=== PATIENT | male | born 1970 | race Caucasian/White ===

== ENCOUNTER → 2023-12-25 08:18 | Outpatient (REF) | payer OTHER, SELFPAY ==
[2023-12-25 09:52] LABS: % Basophils 0.7 % (0-2); % Eosinophils 2.5 % (0-6); % Immature Granulocytes 0.4 % (0-0.5); % Lymphocytes 34.7 % (20.5-51.1); % Monocytes 7.4 % (1.7-9.3); % Neutrophils 54.3 % (42.2-75.2); Absolute Basophils 0.1 10^3/uL (0-0.2); Absolute Eosinophils 0.2 10^3/uL (0-0.7); Absolute Lymphocytes 2.4 10^3/uL (1.2-3.4); Absolute Monocytes 0.5 10^3/uL (0.1-0.6); Absolute Neutrophils 3.7 10^3/uL (1.4-6.5); Hematocrit 37.2 % (39.0-52.0); Hemoglobin 12.8 g/dL (13.0-18.0); Mean Corp Hgb Conc. 34.4 g/dL (33.0-37.0); Mean Corpuscular Volume 87.1 fL (80.0-94.0); Mean Platelet Volume 12.6 fL (7.4-10.4); Nucleated Red Blood Cells % 0 % (-); Platelet Count 186 10^3/uL (130-400); Red Blood Cell Count 4.27 10^6/uL (4.70-6.10); Red Cell Dist. Width 12.9 % (11.5-14.5); White Blood Cell Count 6.9 10^3/uL (4.8-10.8)
[2023-12-25 10:11] LABS: ALT (SGPT) 18 U/L (0-50); AST (SGOT) 23 U/L (17-59); Albumin 4.2 g/dl (3.5-5.0); Alkaline Phosphatase 44 U/L (38-126); Blood Urea Nitrogen 22 mg/dl (9-20); Carbon Dioxide 26 mmol/L (22-30); Chloride 104 mmol/L (98-107); Glucose 121 mg/dl (70-99); HDL Cholesterol 34 mg/dl; LDL Cholesterol, Calculated 96 mg/dl; Potassium 4.1 mmol/L (3.5-5.1); Sodium 138 mmol/L (135-145); Total Bilirubin 0.7 mg/dl (0.2-1.3); Total Cholesterol 158 mg/dl (50-199); Total Protein 6.8 g/dl (6.3-8.2); Triglyceride 141 mg/dl (10-149); Very Low Density Lipoprotein 28 mg/dl (0-30); eGFR > 60.00
[2023-12-25 10:29] LABS: Microalbumin/creatinine Ratio 49.6 mg/g
[2023-12-25 10:41] LABS: PSA, Total - Screen 1.56 ng/ml (0.0-4.0)
== END ==
LOC: HWLAB 08:18
PROVIDERS: ATTENDING PHYSICIAN Nurse Practitioner
DX: E11.9 Type 2 diabetes mellitus without complications (principal); E78.2 Mixed hyperlipidemia; R80.9 Proteinuria, unspecified; Z12.5 Encounter for screening for malignant neoplasm of prostate
CPT/HCPCS: 36415; 80053; 80061; 82043; 82570; 83036; 85025; G0103

== ENCOUNTER → 2024-01-19 06:20 | Day surgery (SDC) | payer OTHER, SELFPAY ==
[2024-01-19 07:26] LABS: Glucose - Point of Care 137 mg/dl (70-99)
== END ==
LOC: GI 06:20
PROVIDERS: ATTENDING PHYSICIAN Internal Medicine Gastroenterology
DX: Z12.11 Encounter for screening for malignant neoplasm of colon (principal); D12.3 Benign neoplasm of transverse colon; K63.5 Polyp of colon; K57.30 Diverticulosis of large intestine without perforation or abscess without bleeding; K64.8 Other hemorrhoids; Z85.038 Personal history of other malignant neoplasm of large intestine
CPT/HCPCS: 45380; 88305; 82962

== ENCOUNTER → 2024-02-01 13:01 | Outpatient (REF) | payer OTHER, SELFPAY | LOC: RAD 13:01 | PROVIDERS: ATTENDING PHYSICIAN Internal Medicine | DX: R31.0 Gross hematuria (principal) | CPT/HCPCS: 74178; Q9967 ==

== ENCOUNTER → 2024-03-06 18:09 | Outpatient (REF) | payer OTHER, SELFPAY | LOC: CLAB 18:09 | PROVIDERS: ATTENDING PHYSICIAN Specialist | DX: N20.0 Calculus of kidney (principal) | CPT/HCPCS: 82365 ==

== ENCOUNTER → 2024-05-14 12:18 | Outpatient (REF) | payer OTHER, SELFPAY | LOC: HWRAD 12:18 | PROVIDERS: ATTENDING PHYSICIAN Internal Medicine Endocrinology, Diabetes & Metabolism; FAMILY PHYSICIAN Internal Medicine | DX: E04.1 Nontoxic single thyroid nodule (principal) | CPT/HCPCS: 76536 ==

== ENCOUNTER → 2024-06-24 07:38 | Outpatient (REF) | payer OTHER, SELFPAY ==
[2024-06-24 09:42] LABS: Blood Urea Nitrogen 19 mg/dl (9-20); Calcium 9.6 mg/dl (8.4-10.2); Carbon Dioxide 27 mmol/L (22-30); Chloride 100 mmol/L (98-107); Glucose 128 mg/dl (70-99); Sodium 136 mmol/L (135-145); eGFR > 60.00
[2024-06-24 10:19] LABS: Glycohemoglobin (HgbA1c) 6.1 % (4.0-5.6)
== END ==
LOC: HWLAB 07:38
PROVIDERS: ATTENDING PHYSICIAN Internal Medicine
DX: E11.9 Type 2 diabetes mellitus without complications (principal)
CPT/HCPCS: 36415; 80048; 83036

== ENCOUNTER 2024-11-27 04:16 | Emergency (ER) | payer OTHER, SELFPAY ==
[2024-11-27 04:20] VITALS: BP 133/73
[2024-11-27 04:34] VITALS: BMI 34.4
[2024-11-27] MEDS: TORADOL 15 MG IV (04:45)
[2024-11-27] MEDS: NSS 1000 IV (04:46)
[2024-11-27 04:49] LABS: Urine Albumin 3+ (Neg - Trace); Urine Bilirubin Negative (Negative); Urine Character Clear (Clear); Urine Color Yellow; Urine Glucose Negative (Negative); Urine Ketone Negative (Negative); Urine Leukocyte Negative (Negative); Urine Nitrite Negative (Negative); Urine Occult Blood 4+ (Negative); Urine Specific Gravity 1.025 (<1.030); Urine Urobilinogen Negative (Neg - 1+)
[2024-11-27 04:49] LABS: % Basophils 0.5 % (0-2); % Eosinophils 1.7 % (0-6); % Immature Granulocytes 0.2 % (0-0.5); % Lymphocytes 35.3 % (20.5-51.1); % Monocytes 7.5 % (1.7-9.3); % Neutrophils 54.8 % (42.2-75.2); Absolute Basophils 0.1 10^3/uL (0-0.2); Absolute Eosinophils 0.2 10^3/uL (0-0.7); Absolute Lymphocytes 3.4 10^3/uL (1.2-3.4); Absolute Monocytes 0.7 10^3/uL (0.1-0.6); Absolute Neutrophils 5.2 10^3/uL (1.4-6.5); Hematocrit 39.7 % (39.0-52.0); Hemoglobin 13.9 g/dL (13.0-18.0); Mean Corpuscular Hgb 30.8 pg (27.0-31.0); Mean Corpuscular Volume 87.8 fL (80.0-94.0); Mean Platelet Volume 12.4 fL (7.4-10.4); Nucleated Red Blood Cells % 0 % (-); Platelet Count 189 10^3/uL (130-400); Red Blood Cell Count 4.52 10^6/uL (4.70-6.10); Red Cell Dist. Width 12.7 % (11.5-14.5); White Blood Cell Count 9.6 10^3/uL (4.8-10.8)
[2024-11-27] MEDS: DILAUDID 1 MG IV (04:57)
[2024-11-27 05:13] LABS: ALT (SGPT) 16 U/L (0-50); AST (SGOT) 21 U/L (17-59); Albumin 4.7 g/dl (3.5-5.0); Alkaline Phosphatase 37 U/L (38-126); Blood Urea Nitrogen 26 mg/dl (9-20); Calcium 9.3 mg/dl (8.4-10.2); Carbon Dioxide 24 mmol/L (22-30); Chloride 108 mmol/L (98-107); Estimated Creatinine Clearance 71 ml/min; Glucose 161 mg/dl (70-99); Lipase 746 U/L (23-300); Sodium 142 mmol/L (135-145); Total Bilirubin 0.7 mg/dl (0.2-1.3); Total Protein 7.1 g/dl (6.3-8.2); eGFR 59.36
--- NOTE | 2024-11-27 05:48 | ED.GENMED ---
History of Present Illness
General
Chief Complaint: Flank Pain
Time Seen by Provider: 11/27/24 04:25
History of Present Illness
History of Present Illness:
53-year-old male presents to the emergency department with right-sided flank pain. Pain began approximately 1 hour prior to arrival and awakened from sleep. Denies fever or chills reports no nausea or vomiting
Past History
Past History
ED Past Medical History: GERD, HTN and Hypercholesterolemia
ED Past Surgical History: Cholecystectomy, Orthopedic and Other (Hernia repair)
Social History
Tobacco: Non-smoker
Alcohol: None
Drug: None
Personal:
Living: with family
Employment: Employed
Family History
Family History: Other (Noncontributory)
Phy Exam
Physical Exam
Physical Exam:
Physical Exam
Vital signs and allergy list reviewed and agreed with.
GENERAL: Alert , in minimal apparent distress
EYE: pupils equal, EOMI, anicteric
NECK: Supple, no significant adenopathy. No masses. Trachea midline
ENT: Oropharynx is clear, mmm.
CARDIAC: Regular rate and rhythm . No M/R/G
LUNGS: Clear breath sounds bilaterally, no acute respiratory distress, no wheezes/rales/rhonchi
ABDOMEN: Soft, without focal tenderness, no r/g, right cvat. Normal BSx4q
NEUROLOGICAL: Alert and oriented, no focal neuro deficits
SKIN: Warm and dry, skin intact.
MUSCULOSKELETAL: No edema, well perfused. Moves all 4 extremities
PSYCH: Normal and appropriate interaction.
Course
Orders/Labs/Results
Orders:
Orders
11/27/24 04:25
CT Abd/pel Without Iv Or Oral Urgent
Comment:
Reason For Exam: r flank pain
0.9% Sodium Chloride 1000 ml [Nss] 1,000 ml IV BOLUS
11/27/24 04:38
Complete Blood Count/With Diff Urgent
Comprehensive Metabolic Panel Urgent
Lipase Urgent
11/27/24 04:39
Urinalysis Reflex To Culture Urgent
Date Specimen was Collected: 11/27/24
Time Specimen was Collected: 04:38
Urine Microscopic Reflex Cult Urgent
11/27/24 04:43
Ketorolac [Toradol] 15 mg .ROUTE .STK-MED ONE
Ketorolac [Toradol] 15 mg IV NOW STA
11/27/24 04:55
HYDROmorphone [Dilaudid] 1 mg IV NOW STA
11/27/24 06:11
Oxycodone/Acetaminophen [Percocet 5/325] 2 tablet .ROUTE .STK-MED ONE
11/27/24 06:14
Oxycodone/Acetaminophen [Percocet 5/325] 2 tablet PO NOW STA
Abnormal Lab Results
11/27/24 11/27/24
04:38 04:39
RBC 4.52 L 10^6/uL
(4.70-6.10)
MPV 12.4 H fL
(7.4-10.4)
Absolute Monos (auto) 0.7 H 10^3/uL
(0.1-0.6)
Chloride 108 H mmol/L
(98-107)
BUN 26 H mg/dl
(9-20)
Creatinine 1.4 H mg/dL
(0.7-1.3)
Glucose 161 H mg/dl
(70-99)
Alkaline Phosphatase 37 L U/L
(38-126)
Lipase 746 H U/L
(23-300)
Ur Occult Blood Reflex 4+ A
(Negative)
Urine RBC >100 A /HPF
(0-2)
Urine Albumin (Reflex) 3+ A
(Neg - Trace)
11/27/24 04:38
11/27/24 04:38
Vital Signs
Initial and Last Documented VS:
Initial Vital Signs
Temp Pulse Resp BP Pulse Ox
98.9 F 59 16 133/73 100
11/27/24 04:20 11/27/24 04:20 11/27/24 04:20 11/27/24 04:20 11/27/24 04:20
Last Documented Vital Signs
Temp Pulse Resp BP Pulse Ox
98.9 F 59 20 127/63 99
11/27/24 04:20 11/27/24 06:16 11/27/24 06:16 11/27/24 06:16 11/27/24 06:16
*Critical Care Note
Total Time (30-74mins, 75-104mins- exclusive of procedures): Not Applicable
Update Note
Update Note:
NAME: ODESSATOYA
DATE OF EXAM: 11/27/2024
Patient No: [id number]
Physician: ARMEN^Barbara
Date of : 1970
Past Medical History (entered by Technologist):
Reason For Exam (entered by Technologist):
Other Notes (entered by Technologist): rlq pain, h/o stones
priors
Additional Information (per [facility] Radiologist):
CT Abdomen and Pelvis (without IV contrast): Obstructing 2 mm stone within the distal right ureter
IMPRESSION:
With mild right hydroureteronephrosis.
No bowel stranding or evidence of obstruction. Normal appendix.
ED Attending Note
-
Portions of this chart may have been created with voice recognition software.� Occasional wrong word or��sound alike� substitutions may have occurred due to the inherent limitations of voice recognition software.
Discharge Plan
Departure
Patient Disposition: Home (Routine Discharge)
Date of Disposition: 11/27/24
Time of Disposition: 05:48
Patient with high blood pressure during this ER visit?: Yes
Condition: Good
Discharge Problem:
Kidney stone on right side
Instructions: Kidney Stones (DC), How to Strain Your Urine, BLOOD PRESSURE, Narcotic Pain Medication
Prescriptions:
New
ondansetron HCl 4 mg tablet
4 mg PO TID 4 Days Qty: 12 0RF
diclofenac sodium 75 mg tablet,delayed release (DR/EC)
75 mg PO BID Qty: 10 0RF
oxycodone-acetaminophen [Percocet] 5-325 mg tablet
1 tab PO Q6HPRN PRN (Reason: pain) Qty: 7 0RF
tamsulosin [Flomax] 0.4 mg capsule
0.4 mg PO DAILY Qty: 7 0RF
No Action
fenofibrate nanocrystallized 145 mg Tablet
145 mg PO HS
Excedrin Migraine 250-250-65 mg Tablet
1 tab PO PRN PRN (Reason: migraine)
naproxen sodium [Aleve] 220 mg Capsule
440 mg PO BID PRN (Reason: pain)
Referrals:
Herman Bolton MD [Active, Urology]
Bhavani Arellano DO [Family Provider, Family Practice]
Interventions
Interventions:
*Risk Screen - Suicide Last Done: 11/27/24 04:20
*General Assessment Last Done: 11/27/24 06:45
*Neglect/Abuse Screening Last Done: 11/27/24 04:20
*ED- Fall Risk Assessment Last Done: 11/27/24 04:20
*ED COVID-19 Vaccine History Last Done: 11/27/24 04:20
*Nursing Disposition Last Done: 11/27/24 06:45
TY-Ushujq-Srgbwxbgiz Assessment Last Done: 11/27/24 05:34
ED-Male Genitourinary Assessment Last Done: 11/27/24 05:34
Discharge Date and Time
Discharge Date/Time: 11/27/24 06:45
Print Language: AZERI
[2024-11-27 05:53] LABS: Urine Uric Acid Crystals Present
[2024-11-27 05:54] LABS: Urine Red Blood Cell >100 /HPF (0-2); Urine White Cell None Seen /HPF (0-5)
[2024-11-27] MEDS: PERCOCET 5/325 2 TABLET PO (06:14)
[2024-11-27 06:16] VITALS: BP 127/63
== END 2024-11-27 06:45 | disposition home or self-care (01) ==
LOC: EMR 04:16
PROVIDERS: EMERGENCY PHYSICIAN Student in an Organized Health Care Education/Training Program; FAMILY PHYSICIAN Internal Medicine
DX: N13.2 Hydronephrosis with renal and ureteral calculous obstruction (principal); I10 Essential (primary) hypertension; E78.00 Pure hypercholesterolemia, unspecified; Z90.49 Acquired absence of other specified parts of digestive tract
CPT/HCPCS: 96374; 96375; 96361; 99284; 74176; 80053; 81003; 81015; 83690; 85025

== ENCOUNTER → 2024-12-25 07:06 | Outpatient (REF) | payer OTHER, SELFPAY ==
[2024-12-25 09:42] LABS: Hematocrit 37.0 % (39.0-52.0); Hemoglobin 12.8 g/dL (13.0-18.0); Mean Corp Hgb Conc. 34.6 g/dL (33.0-37.0); Mean Corpuscular Volume 87.5 fL (80.0-94.0); Nucleated Red Blood Cells % 0 % (-); Platelet Count 153 10^3/uL (130-400); Red Cell Dist. Width 12.4 % (11.5-14.5)
[2024-12-25 10:06] LABS: ALT (SGPT) 14 U/L (0-50); AST (SGOT) 18 U/L (17-59); Albumin 4.3 g/dl (3.5-5.0); Alkaline Phosphatase 38 U/L (38-126); Blood Urea Nitrogen 20 mg/dl (9-20); Calcium 9.1 mg/dl (8.4-10.2); Carbon Dioxide 22 mmol/L (22-30); Chloride 109 mmol/L (98-107); Glucose 147 mg/dl (70-99); HDL Cholesterol 28 mg/dl; LDL Cholesterol, Calculated 79 mg/dl; Potassium 4.3 mmol/L (3.5-5.1); Sodium 139 mmol/L (135-145); Total Protein 6.6 g/dl (6.3-8.2); Very Low Density Lipoprotein 40 mg/dl (0-30); eGFR > 60.00
[2024-12-25 10:07] LABS: Glycohemoglobin (HgbA1c) 6.2 % (4.0-5.6)
[2024-12-25 10:53] LABS: Iron 61 ug/dl (49-181); Lipase 216 U/L (23-300)
[2024-12-25 11:02] LABS: Total Iron Binding Capacity 368 ug/dl (261-462)
[2024-12-25 11:47] LABS: Ferritin 54.8 ng/ml (17.9-464.0)
[2024-12-25 12:13] LABS: Microalb - Urine Creatinine 82.500 mg/dl
[2024-12-25 12:17] LABS: Microalbumin, Random Urine 2.5 mg/dl (0.6-1.7)
== END ==
LOC: HWLAB 07:06
PROVIDERS: ATTENDING PHYSICIAN Internal Medicine
DX: E11.9 Type 2 diabetes mellitus without complications (principal); G47.33 Obstructive sleep apnea (adult) (pediatric); E78.2 Mixed hyperlipidemia; R80.9 Proteinuria, unspecified; Z87.442 Personal history of urinary calculi
CPT/HCPCS: 36415; 80053; 80061; 82043; 82570; 82728; 83036; 83540; 83550; 83690; 84443; 85025

== ENCOUNTER 2025-01-21 06:27 | Day surgery (SDC) | payer OTHER, SELFPAY ==
[2025-01-21 07:43] LABS: Glucose - Point of Care 131 mg/dl (70-99)
== END 2025-01-21 09:12 | disposition home or self-care (01) ==
LOC: GI 06:27
PROVIDERS: ATTENDING PHYSICIAN Internal Medicine Gastroenterology
DX: Z12.11 Encounter for screening for malignant neoplasm of colon (principal); K57.30 Diverticulosis of large intestine without perforation or abscess without bleeding; K64.8 Other hemorrhoids; D12.2 Benign neoplasm of ascending colon; K62.1 Rectal polyp; Z85.038 Personal history of other malignant neoplasm of large intestine
CPT/HCPCS: 45385; 45380; 82962; 88305

== ENCOUNTER → 2025-03-28 10:18 | Outpatient (REF) | payer OTHER, SELFPAY ==
[2025-03-28 12:23] LABS: HDL Cholesterol 34 mg/dl; LDL Cholesterol, Calculated 84 mg/dl; Very Low Density Lipoprotein 39 mg/dl (0-30)
[2025-03-28 12:49] LABS: PSA, Total - Screen 1.37 ng/ml (0.0-4.0)
== END ==
LOC: HWLAB 10:18
PROVIDERS: ATTENDING PHYSICIAN Internal Medicine
DX: I10 Essential (primary) hypertension (principal); Z12.31 Encounter for screening mammogram for malignant neoplasm of breast; E78.2 Mixed hyperlipidemia; Z12.5 Encounter for screening for malignant neoplasm of prostate
CPT/HCPCS: 36415; 80061; G0103